=== PATIENT | male | born 2000 | race Caucasian/White ===

== ENCOUNTER 2022-01-26 10:11 | Emergency (ER) | payer OTHER ==
[~2022-01-26] VITALS: Ht 172.7 cm; Wt 72.6 kg
[2022-01-26 11:16] LABS: BASO % 0.7 % (0.0-1.0); EOS # 0.1 10*3/uL (0.0-0.4); EOS % 1.7 % (1.0-4.0); HEMATOCRIT 42.8 % (42.0-52.0); LYMPH % 33.6 % (27.0-41.0); MEAN CELL VOLUME 88.4 fl (80.0-94.0); MEAN CORPUSCULAR HGB 30.4 pg (27.0-31.0); MEAN CORPUSCULAR HGB CONC 34.3 g/dl (33.0-37.0); MEAN PLATELET VOLUME 9.4 fl (9.6-12.3); MONO # 0.3 10*3/uL (0.1-1.0); MONO % 5.8 % (3.0-9.0); NEUT # 3.4 10*3/uL (2.3-7.9); NEUT % 57.7 % (47.0-73.0); PLATELET COUNT AUTOMATED 226 10*3/uL (130-400); RED BLOOD COUNT 4.84 10*6/uL (4.50-5.90); WHITE BLOOD COUNT 5.9 10*3/uL (4.8-10.8)
[2022-01-26 11:31] LABS: ALKALINE PHOSPHATASE 68 U/L (45-117); BUN 14 mg/dl (7-24); CHLORIDE 108 mmol/L (98-107); CREATININE 0.76 mg/dL (0.70-1.30); LIPASE 33 U/L (73-393); POTASSIUM 3.9 mmol/L (3.5-5.1); SGOT/AST 21 IU/L (3-35); SGPT/ALT 22 U/L (12-78); SODIUM 139 mmol/L (136-145); TOTAL PROTEIN 6.9 gm/dL (6.4-8.2)
[2022-01-26 13:29] LABS: BILIRUBIN Negative (Negative); BLOOD Negative (Negative); CLARITY Clear (Clear); COLOR Yellow (Yellow); GLUCOSE Negative (Negative); KETONE Negative (Negative); LEUKO ESTERASE Negative (Negative); NITRITE Negative (Negative); UROBILINOGEN 0.2 E.U./dl (0.0-1.0)
[2022-01-26 13:40] LABS: RBC 0-2 rbc/hpf (0-2); WBC 0-2 wbc/hpf (0-5)
[2022-01-26] MEDS ORDERED: PROTONIX40 MG PO (16:55)
== END 2022-01-26 17:05 | disposition home or self-care (01) ==
LOC: ED 10:11
PROVIDERS: Emergency Medicine
DX: K29.60 Other gastritis without bleeding (principal); Z88.6 Allergy status to analgesic agent

== ENCOUNTER 2023-02-12 13:24 | Emergency (ER) | payer OTHER ==
[~2023-02-12] VITALS: Ht 172.7 cm; Wt 81.6 kg
[~2023-02-12 13:24] MED LIST: PROTONIX40 MG PO
[2023-02-12 13:49] LABS: BASO # 0.1 10*3/uL (0.0-0.1); BASO % 0.6 % (0.0-1.0); EOS # 0.3 10*3/uL (0.0-0.4); EOS % 2.9 % (1.0-4.0); HEMATOCRIT 47.2 % (42.0-52.0); LYMPH # 2.3 10*3/uL (1.3-4.4); LYMPH % 24.9 % (27.0-41.0); MEAN CELL VOLUME 87.4 fl (80.0-94.0); MEAN CORPUSCULAR HGB 31.1 pg (27.0-31.0); MEAN CORPUSCULAR HGB CONC 35.6 g/dl (33.0-37.0); MEAN PLATELET VOLUME 9.8 fl (9.6-12.3); MONO % 10.9 % (3.0-9.0); NEUT # 5.4 10*3/uL (2.3-7.9); NEUT % 60.3 % (47.0-73.0); PLATELET COUNT AUTOMATED 240 10*3/uL (130-400); RED CELL DISTRI WIDTH 11.9 % (0-14.5)
[2023-02-12 13:58] LABS: BILIRUBIN Negative (Negative); BLOOD Negative (Negative); CLARITY Clear (Clear); COLOR Yellow (Yellow); GLUCOSE Negative (Negative); KETONE Negative (Negative); LEUKO ESTERASE Negative (Negative); NITRITE Negative (Negative); UROBILINOGEN 0.2 E.U./dl (0.0-1.0)
[2023-02-12 14:00] LABS: ACT PARTIAL THROMBO TIME 27.3 SECONDS (20.0-32.1)
[2023-02-12 14:00] LABS: PH 8.5 (4.5-8.0)
[2023-02-12 14:08] LABS: WBC 0-2 wbc/hpf (0-5)
[2023-02-12 14:13] LABS: ALKALINE PHOSPHATASE 82 U/L (46-116); BUN 11 mg/dl (9-23); CHLORIDE 105 mmol/L (98-107); LIPASE 29 U/L (12-53); POTASSIUM 3.3 mmol/L (3.4-5.1); SGPT/ALT 24 U/L (10-49); TOTAL PROTEIN 7.7 gm/dL (6.0-8.0)
[2023-02-12 14:22] LABS: URINE AMPHETAMINES Negative (1000ng/ml); URINE BARBITURATES Negative (200ng/ml); URINE BENZODIAZEPINES Negative (200ng/ml); URINE CANNABINOIDS (THC) Negative (50ng/ml); URINE COCAINE Negative (300ng/ml); URINE METHADONE Negative (300ng/ml); URINE OPIATES Negative (300ng/ml); URINE PHENCYCLIDINE Negative (25ng/ml)
== END 2023-02-12 15:10 | disposition home or self-care (01) ==
LOC: ED 13:24
PROVIDERS: Internal Medicine
DX: F41.9 Anxiety disorder, unspecified (principal); E87.6 Hypokalemia; M79.642 Pain in left hand; M79.641 Pain in right hand; Z88.5 Allergy status to narcotic agent; Z90.49 Acquired absence of other specified parts of digestive tract; Z98.890 Other specified postprocedural states

== ENCOUNTER 2023-02-19 20:04 | Emergency (ER) | payer OTHER ==
[2023-02-19] MEDS ORDERED: SERTRALINE HYDR25 MG PO (20:14)
[2023-02-19] MEDS ORDERED: HYDROCODONE-AC1 EAC1 PO (20:49)
== END 2023-02-19 20:58 | disposition home or self-care (01) ==
LOC: ED 20:04
DX: S92.355A Nondisplaced fracture of fifth metatarsal bone, left foot, initial encounter for closed fracture (principal); Z88.5 Allergy status to narcotic agent; Z90.49 Acquired absence of other specified parts of digestive tract; Z98.41 Cataract extraction status, right eye; X50.1XXA Overexertion from prolonged static or awkward postures, initial encounter; Y93.89 Activity, other specified; Y92.009 Unspecified place in unspecified non-institutional (private) residence as the place of occurrence of the external cause; Y99.8 Other external cause status

== ENCOUNTER → 2023-03-14 | Outpatient (CLI) | payer OTHER ==
[~2023-03-14] MED LIST changes: +HYDROCODONE-AC1 EAC1 PO; +SERTRALINE HYDR25 MG PO
== END | disposition home or self-care (01) ==
LOC: ORTHO 01:39
PROVIDERS: ATTEND Orthopaedic Surgery
DX: S92.302D Fracture of unspecified metatarsal bone(s), left foot, subsequent encounter for fracture with routine healing (principal); X58.XXXD Exposure to other specified factors, subsequent encounter

== ENCOUNTER → 2023-04-04 | Outpatient (CLI) | payer OTHER | END | disposition home or self-care (01) | LOC: ORTHO 01:09 | PROVIDERS: ATTEND Orthopaedic Surgery | DX: S92.302D Fracture of unspecified metatarsal bone(s), left foot, subsequent encounter for fracture with routine healing (principal); X58.XXXD Exposure to other specified factors, subsequent encounter ==

== ENCOUNTER → 2023-05-16 | Outpatient (CLI) | payer OTHER | END | disposition home or self-care (01) | LOC: ORTHO 00:41 | PROVIDERS: ATTEND Orthopaedic Surgery | DX: S92.352D Displaced fracture of fifth metatarsal bone, left foot, subsequent encounter for fracture with routine healing (principal); X58.XXXD Exposure to other specified factors, subsequent encounter ==

== ENCOUNTER → 2023-06-07 | Day surgery (SDC) | payer OTHER ==
[~2023-06-07] VITALS: Ht 172.7 cm; Wt 61.2 kg
[2023-06-07 06:52] VITALS: BP 108/70
[2023-06-07 07:59] VITALS: BP 105/51
[2023-06-07 08:12] VITALS: BP 109/61
[2023-06-07 08:26] VITALS: BP 105/55
== END | disposition home or self-care (01) ==
LOC: SDC 06-03 14:45
PROVIDERS: ATTEND Orthopaedic Surgery
DX: G56.01 Carpal tunnel syndrome, right upper limb (principal); Z88.5 Allergy status to narcotic agent

== ENCOUNTER → 2023-06-13 | Outpatient (CLI) | payer OTHER | END | disposition home or self-care (01) | LOC: ORTHO 01:41 | PROVIDERS: ATTEND Orthopaedic Surgery | DX: S92.355D Nondisplaced fracture of fifth metatarsal bone, left foot, subsequent encounter for fracture with routine healing (principal); S92.302D Fracture of unspecified metatarsal bone(s), left foot, subsequent encounter for fracture with routine healing; X58.XXXD Exposure to other specified factors, subsequent encounter ==

== ENCOUNTER → 2023-06-20 | Outpatient (CLI) | payer OTHER | END | disposition home or self-care (01) | LOC: RAD 09:06 | PROVIDERS: ATTEND Orthopaedic Surgery | DX: M79.641 Pain in right hand (principal) ==

== ENCOUNTER → 2024-08-29 | Outpatient (CLI) | payer OTHER | END | disposition home or self-care (01) | LOC: RAD 09:00 | PROVIDERS: ATTEND Nurse Practitioner Family | DX: S19.9XXA Unspecified injury of neck, initial encounter (principal); X58.XXXA Exposure to other specified factors, initial encounter; Y93.89 Activity, other specified; Y92.89 Other specified places as the place of occurrence of the external cause; Y99.8 Other external cause status ==

== ENCOUNTER 2025-04-11 14:37 | Emergency (ER) | payer SELFPAY ==
[~2025-04-11] VITALS: Ht 172.7 cm; Wt 85.7 kg
[2025-04-11] MEDS ORDERED: SODIUM CHLORIDE 0.9% 500 ML IV ONE (16:50)
[2025-04-11 17:10] LABS: BASO # 0.0 10*3/uL (0.0-0.1); BASO % 0.7 % (0.0-1.0); EOS # 0.2 10*3/uL (0.0-0.4); EOS % 3.6 % (1.0-4.0); MEAN CELL VOLUME 91.0 fl (80.0-94.0); MEAN CORPUSCULAR HGB 30.5 pg (27.0-31.0); MEAN PLATELET VOLUME 9.6 fl (9.6-12.3); MONO # 0.6 10*3/uL (0.1-1.0); MONO % 9.8 % (3.0-9.0); NEUT # 3.3 10*3/uL (2.3-7.9); NEUT % 56.0 % (47.0-73.0); NUCLEATED RED BLOOD CELL 0.0 % (0.0-0.0); NUCLEATED RED BLOOD CELL 0.0 10*3/uL (0.0-0.0); PLATELET COUNT AUTOMATED 249 10*3/uL (130-400); RED CELL DISTRI WIDTH 12.3 % (0-14.5)
[2025-04-11 17:24] LABS: BUN 15 mg/dl (9-23)
[2025-04-11] MEDS ORDERED: LOMOTIL 2.5-0.1 EACH PO (17:46)
== END 2025-04-11 17:51 | disposition home or self-care (01) ==
LOC: ED 14:37
PROVIDERS: Emergency Medicine
DX: R19.7 Diarrhea, unspecified (principal); R53.1 Weakness; R10.84 Generalized abdominal pain; Z88.5 Allergy status to narcotic agent

== ENCOUNTER 2025-06-01 16:06 | Emergency (ER) | payer SELFPAY ==
[~2025-06-01] VITALS: Ht 170.1 cm; Wt 83.9 kg
[~2025-06-01 16:06] MED LIST changes: +LOMOTIL 2.5-0.1 EACH PO
[2025-06-01] MEDS ORDERED: Dicyclomine Hydrochloride 20 MG/10 ML OSYR PO STA (16:21)
[2025-06-01] MEDS ORDERED: MG-AL HYDROXIDE/SIMETICONE 30 ML UDC PO STA (16:21)
[2025-06-01] MEDS ORDERED: SODIUM CHLORIDE 0.9% 1,000 ML IV ONE (16:25)
[2025-06-01 16:35] LABS: BASO # 0.1 10*3/uL (0.0-0.1); BASO % 0.6 % (0.0-1.0); EOS # 0.3 10*3/uL (0.0-0.4); EOS % 3.3 % (1.0-4.0); MEAN CELL VOLUME 88.9 fl (80.0-94.0); MEAN CORPUSCULAR HGB 31.1 pg (27.0-31.0); MEAN PLATELET VOLUME 9.6 fl (9.6-12.3); MONO # 0.6 10*3/uL (0.1-1.0); MONO % 7.5 % (3.0-9.0); NEUT # 4.3 10*3/uL (2.3-7.9); NEUT % 53.4 % (47.0-73.0); NUCLEATED RED BLOOD CELL 0.0 % (0.0-0.0); NUCLEATED RED BLOOD CELL 0.0 10*3/uL (0.0-0.0); PLATELET COUNT AUTOMATED 260 10*3/uL (130-400); RED CELL DISTRI WIDTH 12.1 % (0-14.5)
[2025-06-01 16:57] LABS: BUN 11 mg/dl (9-23)
[2025-06-01] MEDS ORDERED: PROTONIX40 MG PO (17:00)
[2025-06-01] MEDS ORDERED: PEPCID20 MG PO (17:00)
[2025-06-01] MEDS ORDERED: CARAFATE1 G1 PO (23:51)
== END 2025-06-01 17:18 | disposition home or self-care (01) ==
LOC: ED 16:06
PROVIDERS: Emergency Medicine
DX: K21.9 Gastro-esophageal reflux disease without esophagitis (principal); Z88.5 Allergy status to narcotic agent; Z90.49 Acquired absence of other specified parts of digestive tract

== ENCOUNTER 2025-06-01 22:34 | Emergency (ER) | payer SELFPAY ==
[~2025-06-01] VITALS: Ht 170.1 cm; Wt 83.9 kg
[~2025-06-01 22:34] MED LIST changes: +PEPCID20 MG PO
[2025-06-01] MEDS ORDERED: MG-AL HYDROXIDE/SIMETICONE 30 ML UDC PO ONE (22:55)
[2025-06-01] MEDS ORDERED: CARAFATE1 G1 PO (23:51)
== END 2025-06-02 00:21 | disposition home or self-care (01) ==
LOC: ED 22:34
DX: K21.9 Gastro-esophageal reflux disease without esophagitis (principal); R07.89 Other chest pain; Z79.899 Other long term (current) drug therapy; Z88.5 Allergy status to narcotic agent; Z90.49 Acquired absence of other specified parts of digestive tract